=== PATIENT | female | born 1980 | race Caucasian/White ===

== ENCOUNTER 2023-11-18 13:34 | Outpatient (AMB) | payer OTHER, SELFPAY ==
--- NOTE | 2023-11-18 13:05 | MHC.OFFVIS ---
Vital Signs 11/18/23 13:36 Height 4 ft 10.5 in Weight 131 lb 2.801 oz BMI 26.9 BP 110/72 Blood Pressure Location Rt brachial Position Sitting Pulse 59 Pulse Source Pulse Oximeter Pulse Oximetry (%) 99 Oxygen Delivery Method Room Air Intake Visit Reasons: Shortness of breath Allergies No Known Allergies Allergy (Verified 11/18/23 13:38) HPI HPI Shortness of breath: Details: Ksenia is a pleasant 43 year old female, never smoker, with underlying GERD, anxiety and environmental allergies. She was referred by PCP for pulmonary evaluation. She reports dyspnea on exertion with associated chest tightness that started in July. Denies cough or wheezing. She does report symptoms are triggered by position (supine/prone), humidity and moderate exertion. She is quite active and notes when hiking no symptoms however with swimming breathing can become labored. She did note having fundoplication surgery 10+ years ago with resolution of symptoms, previously thought to have exercise induced asthma. She wonders if she may need revision or if symptoms are attributed to underlying pulmonary etiologies. She does note some degree of dysphagia. She was supposed to be sent for barium swallow test however did not have this performed. She reports family history of cardiac conditions, no pulmonary history. She also reports seasonal allergies, no recent allergy testing. She had a recent CXR which was reportedly unremarkable. She was evaluated by ENT with reported unremarkable evaluation. [facility] Social History (Updated 11/18/23 @ 13:39 by Shavonne Jesus [facility]) Patient Tobacco Use Status: Never used Tobacco Review of Systems Const Denies chills, Denies excessive sweating, Denies fever(s), Denies headache(s) and Denies night sweats Eyes Denies dry eyes, Denies irritation and Denies itchy eyes ENT Reports Normal hearing present, Denies headache(s), Denies nasal congestion, Denies nasal discharge and Denies sore throat Card Denies chest pain, Denies chest pain at rest, Denies chest pain with activity, Denies claudication, Denies leg edema, Denies orthopnea and Denies paroxysmal nocturnal dyspnea Resp Denies chest congestion, Denies cough, Denies excessive phlegm production, Denies pain on inspiration, Denies pain with cough and Denies stridor Musc Denies myalgias Neuro Reports Normal hearing present and Denies headache(s) Endo Denies excessive sweating Joe/Lymph Denies lymphadenopathy Aller/Immun Denies itchy eyes and Denies seasonal rhinorrhea Physical Exam Vital Signs: Last Vital Signs Pulse 59 11/18/23 13:36 BP 110/72 11/18/23 13:36 Pulse Ox 99 11/18/23 13:36 Oxygen Delivery Method Room Air 11/18/23 13:36 BMI result Body Mass Index 26.9 Const General: cooperative, healthy appearing, comfortable, no acute distress, well developed and alert Orientation/consciousness: patient oriented x3 Limitations: no limitations HEENT Head: Yes normal to inspection, Yes normocephalic and Yes atraumatic Ears: hearing grossly normal bilaterally and external ears normal Eyes General: appearance normal, both eyes and all related structures Eyelids: Yes eyelids normal Sclerae: sclerae normal EOM: EOMs intact bilaterally Neck Neck: Yes normal visual inspection and Yes no lymphadenopathy Lymphatic: no lymphadenopathy noted Chest Chest palpation & inspection: normal inspection of the chest Resp Effort & Inspection: normal respiratory effort, able to speak in complete sentences, no audible wheezes, no cough, no stridor, not tachypneic, no tripod positioning and no use of accessory muscles Auscultation: clear to auscultation bilaterally Cardio Jugular venous distension: no JVD Rate: regular rate Rhythm: regular rhythm Skin Other: warm, dry General skin exam: no rashes or lesions noted Neuro General: patient oriented x3 Cranial nerves: Yes Normal hearing present Cognition (Neuro): normal cognition Gait exam (Neuro): Normal gait present Extrem General: Yes normal to inspection, Yes capillary refill normal, Yes no clubbing, cyanosis or edema and Yes no pedal edema Psych Appearance: grossly normal and well kempt Speech and movement: Normal speech and movement present and Clear speech present Affect: normal affect Attitude: cooperative Thought process: Normal thought process present Thought content: Normal thought content present Insight: Good insight present (Psych) Judgement: Good judgement present (Psych) Assessment & Plan Assessment & Plan (1) Dyspnea on exertion: Code(s): R06.09 - Other forms of dyspnea Category: Medical (2) Dysphagia: Code(s): R13.10 - Dysphagia, unspecified Category: Medical (3) Environmental allergies: Code(s): Z91.09 - Other allergy status, other than to drugs and biological substances Category: Medical Plan Ksenia presents with dyspnea on exertion with unclear etiology, may have component of GI contribution. Will send for PFT and RAST to evaluate for underlying pulmonary etiology and possible allergic contribution. She is requesting this PFT order to be sent to [facility] and would prefer levalbuterol during test as she could not tolerate albuterol. Prior CXR reportedly unremarkable. All questions were answered and patient is in agreement of plan. Will follow up afer to review results or sooner if needed. Orders: Orders Resp Allergy Profile Region I 11/18/23 Z91.09 - Other allergy status, other than to drugs and biological substances Immunoglobulin E 11/18/23 Z91.09 - Other allergy status, other than to drugs and biological substances Complete Blood Count Auto Diff 11/18/23 Z91.09 - Other allergy status, other than to drugs and biological substances PFT pulmonary function test 11/18/23 R06.09 - Other forms of dyspnea Coding Level of Care Code New Pt Level 4 (02728) Diagnoses Dyspnea on exertion R06.09 Dysphagia R13.10 Environmental allergies Z91.09
[2023-11-18 13:36] VITALS: BP 110/72; PULSE 59; O2SAT 99; BMI 26.9
== END 2023-11-18 14:21 | disposition home or self-care (01) ==
PROVIDERS: PCP Internal Medicine; Referring Provider Internal Medicine; Visit Provider Nurse Practitioner Family
DX: R06.09 Other forms of dyspnea (principal); R13.10 Dysphagia, unspecified; Z91.09 Other allergy status, other than to drugs and biological substances
CPT/HCPCS: 99204

== ENCOUNTER → 2023-11-18 13:34 | Outpatient (BNVA) | payer OTHER, SELFPAY | PROVIDERS: PCP Internal Medicine; Referring Provider Internal Medicine; Visit Provider Nurse Practitioner Family ==

== ENCOUNTER 2024-11-04 14:08 | Outpatient (AMB) | payer OTHER, SELFPAY ==
--- NOTE | 2024-11-04 14:09 | MHC.PC.OV ---
Vital Signs 11/04/24 14:14 Height 4 ft 11.45 in Weight 128 lb BMI 25.5 BP 106/62 Blood Pressure Location Rt brachial Position Sitting Respiration 14 Pulse 60 Pulse Source Pulse Oximeter Temp 98.4 F Temp Source Temporal Artery Scan Pulse Oximetry (%) 99 Oxygen Delivery Method Room Air Intake Visit Reasons: Alan Mccann / Dr. Martinez Imaging Services Director Required: No Accompanied by: Self / Same As Patient Allergies No Known Allergies Allergy (Verified 11/04/24 14:22) Medication List - Last Reconciled 11/04/24 by Lidia Taveras PA-C fluticasone propionate 50 mcg/actuation (Flonase Allergy Relief) 2 sprays intranasal BID PRN loratadine (Claritin) 10 mg PO DAILY norethindrone-e.estradiol-iron 1 mg-20 mcg ()/75 mg (7) (03/09 (28)) 1 tab PO DAILY venlafaxine ER 75 mg PO DAILY Tobacco use date assessed: 11/04/24 Dental Screening Dental Screen Date: 11/04/24 Did you have a dental visit in the last 12 months?: Yes Did you have a dental problem in the last 6 months where you did not have access to dental care?: No Was dental information given to patient?: Patient has dentist HPI Alan Mccann / Dr. Martinez HPI Details The patient is a 44-year-old female presenting with a annual physical exam and to establish care. She has a history of anxiety and depression, for which she is currently taking venlafaxine. She also reports seasonal allergies managed with fluticasone nasal spray and Claritin D. The patient has a history of Gastroesophageal Reflux Disease (GERD) and underwent fundoplication in 1999. She reports occasional dysphagia with dry foods, which she attributes to GERD. She reports worsening rosacea, characterized by painful bumps and erythema, which has not improved with [id number] treatments. She has not seen a substation electrician supervisor due to difficulty in getting an appointment. The patient had a flu vaccine in 2017, after which she experienced symptoms suggestive of transverse myelitis. She has a letter from Dr. Martinez exempting her from future flu vaccinations due to these symptoms. Preventative care measures include a recent normal mammogram and plans for a colonoscopy at age 45, given no family history of colon cancer. 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 [facility] Medical History (Updated 11/04/24 @ 15:32 by Lidia Taveras PA-C) Anxiety and depression Transverse myelitis GERD (gastroesophageal reflux disease) Annual physical exam Acne rosacea History of mammogram (~03/06/24) Encounter for preventive care Family History Father No problems noted. Mother Heart problem Coronary artery disease Social History Housing: Condominium Alcohol intake: current Alcohol intake frequency: holidays/special occasions only Patient Tobacco Use Status: Never used Tobacco service: No Current occupational status: employed Cognitive needs: No Hearing needs: No Vision needs: No Questionnaire PHQ-9 Over the last 2 weeks, how often have you been bothered by any of the following problems? 1. Little interest or pleasure in doing things: not at all 2. Feeling down, depressed, or hopeless: not at all 3. Trouble falling or staying asleep, or sleeping too much: not at all 4. Feeling tired or having little energy: not at all 5. Poor appetite or overeating: not at all 6. Feeling bad about yourself - or that you are a failure or have let yourself or your family down: not at all 7. Trouble concentrating on things, such as reading the newspaper or watching television: not at all 8. Moving or speaking so slowly that other people could have noticed. Or the opposite - being so fidgety or restless that you have been moving around a lot more than usual: not at all 9. Thoughts that you would be better off or of hurting yourself in some way: not at all Total score: 0 Depression Screening Interpretation: Negative Depression Screening Done: Yes 30318 - PHQ-9 Billing: Yes Source: Developed by Drs. Cedric Quiroz, Debo Humphrey, Yossi Vail and colleagues, with an educational meena from [employer]. Thrive Questionnaire Date Thrive assessed: 11/04/24 I am a: Patient What is your living situation today?: I have a steady place to live Within the past 12 months, did the food you bought not last and you didn't have the money to get more?: Never true Within the past 12 months, did you worry whether your food would run out before you got money to buy more?: Never true Do you have trouble paying for medicines?: No Do you have trouble getting transportation to medical appointments?: No Do you have trouble paying your heating and electricity bill?: No Do you have trouble taking care of your child, family member or friend?: No Do you have trouble with day-to-day activities such as bathing, preparing meals, shopping, managing finances, etc.?: No Are you currently unemployed and looking for a job?: No Please select the resources that you would like help with: None THRIVE Score: 0 AUDIT C Alcohol Use Questionnaire (AUDIT-C) 1. How often do you have a drink containing alcohol?: Monthly or less 2. How many drinks containing alcohol do you have on a typical day when you are drinking?: 1 or 2 3. How often do you have six or more drinks on one occasion?: Never Total Score: 1 Score Reviewed/Action Taken: No SWEETIE-7 AMB Questionnaire SWEETIE-7 Date SWEETIE - 7 assessed: 11/04/24 Feeling nervous, anxious, or on edge: 0 = Not at all Not being able to stop or control worryin = Not at all Worrying too much about different things: 0 = Not at all Trouble relaxin = Not at all Being so restless that it is hard to sit still: 0 = Not at all Becoming easily annoyed or irritable: 0 = Not at all Feeling afraid as if something awful might happen: 0 = Not at all Total SWEETIE-7 score (0-4 normal; 5-9 mild; 10-14 moderate; 15-21 severe): 0 Source: Developed by Drs. Cedric Quiroz, Debo Humphrey, Yossi Vail and colleagues, with an educational meena from [employer]. SWEETIE-7 Assessment Billing SWEETIE-7 Assessment Tool: SWEETIE-7 Assessment 66420 Review of Systems Const Details: - Dermatological: Reports worsening rosacea with painful bumps. - Gastrointestinal: Reports occasional dysphagia with dry foods. - Neurological: Denies any current symptoms of transverse myelitis. All systems reviewed & are unremarkable except as noted in HPI and below Physical exam (Primary Care) Vital Signs: Last Vital Signs Temp 98.4 F 11/04/24 14:14 Pulse 60 11/04/24 14:14 Resp 14 11/04/24 14:14 BP 106/62 11/04/24 14:14 Pulse Ox 99 11/04/24 14:14 Oxygen Delivery Method Room Air 11/04/24 14:14 Care Plan Goal for BP management: <140/90 at Goal BMI result Body Mass Index 25.5 BMI Assessment/Plan discussion: High BMI High, discussed plan: lifestyle, weight reduction, dietary, physical activity, alcohol moderation and other Tobacco/Smoking Status: Tobacco use Status Tobacco use date assessed 11/04/24 11/04/24 14:19 Patient Tobacco Use Status Never used Tobacco 11/04/24 14:19 PHQ-9: PHQ-9 Score PHQ-9: Total score 0 11/04/24 14:23 Depression Screening Interpretation: Negative Thrive Assessment: Date of Thrive Assessment Date Thrive assessed 11/04/24 11/04/24 14:19 Const Other: Appearance: Alert. Oriented X3. No acute distress. Head: Normal external exam. Normocephalic. Atraumatic. Eyes: Pupils are equal, round, and reactive to light. Extraocular movements intact. Conjunctiva and sclera normal. Eyelids normal. Ears: External auditory canal normal. Tympanic membranes normal. Throat: Pharynx normal. Uvula midline. Moist mucous membranes. Neck: Normal inspection. Neck supple. Full range of motion. No adenopathy. Thyroid Normal. No meningeal signs. No neck mass noted. Cardiovascular: Normal heart rate and rhythm. Heart sound normal. No murmurs noted. Pulses normal throughout. Respiratory: No respiratory distress. Painless inspiration. Breath sounds normal. No wheezes/rales/rhonchi noted. Chest nontender. No accessory muscle usage noted or decreased air movement noted. Abdomen: Soft and nontender. Bowel sounds normal in all 4 quadrants. No distention noted. No organomegaly noted. No visible injury noted. Back: No costovertebral angle tenderness. Full range of motion noted. Skin: Skin warm and dry. Normal skin color. Normal skin turgor. No rashes/lesions/lacerations noted. Extremities: No lower extremity edema. Extremities exhibit normal range of motion. Extremities nontender. Neuro: Oriented X 3. No motor deficit. No sensory deficit. Reflexes normal. Results Reviewed Results Reviewed: - Labs: Total cholesterol over 200 mg/dL, HDL 120 mg/dL, fasting glucose under 110 mg/dL, all other labs normal. - Imaging: Normal mammogram this year. Coding Level of Care Code New Pt Level 4 (57541) New Pt Prev Care 40-64y(01014) Diagnoses Annual physical exam Z00.00 Environmental allergies Z91.09 GERD (gastroesophageal reflux disease) K21.9 Acne rosacea L71.9 Transverse myelitis G37.3 Encounter for preventive care Z00.00 Anxiety and depression F41.9; F32.A Additional Codes SWEETIE-7 Assessment Billing - SWEETIE-7 Assessment Tool: SWEETIE-7 Assessment 87303 ([id number]) PHQ-9 - 40047 - PHQ-9 Billing: Yes ([id number]) Time Spent (min) 50 Assessment & Plan Assessment & Plan (1) Annual physical exam: Code(s): Z00.00 - Encounter for general adult medical examination without abnormal findings Category: Medical (2) Environmental allergies: Code(s): Z91.09 - Other allergy status, other than to drugs and biological substances Category: Medical Plan: The patient will continue using fluticasone nasal spray and Claritin D for allergy management. (3) GERD (gastroesophageal reflux disease): Code(s): K21.9 - Gastro-esophageal reflux disease without esophagitis Category: Medical Plan: The patient is advised to monitor dietary triggers for GERD and manage dysphagia by avoiding dry foods. (4) Acne rosacea: Code(s): L71.9 - Rosacea, unspecified Category: Medical Plan: A prescription cream will be provided for rosacea, and a referral to a substation electrician supervisor has been made. (5) Transverse myelitis: Code(s): G37.3 - Acute transverse myelitis in demyelinating disease of central nervous system Category: Medical Plan: The patient has a letter exempting her from flu vaccinations due to suspected transverse myelitis post-vaccination. (6) Encounter for preventive care: Code(s): Z00.00 - Encounter for general adult medical examination without abnormal findings Category: Medical Plan: The patient will undergo routine blood work, including CBC, CMP, and other relevant tests. A colonoscopy is planned for age 45. (7) Anxiety and depression: Code(s): F41.9 - Anxiety disorder, unspecified; F32.A - Depression, unspecified Category: Medical Plan: The patient will continue venlafaxine for management of anxiety and depression. A 90-day supply has been prescribed. Plan Plan Patient was informed and verbally consented to the use of an ambient scribe for clinic note documentation during this visit. 1. Anxiety And Depression The patient will continue venlafaxine for management of anxiety and depression. A 90-day supply has been prescribed. 2. Seasonal Allergies The patient will continue using fluticasone nasal spray and Claritin D for allergy management. 3. Gastroesophageal Reflux Disease (Gerd) The patient is advised to monitor dietary triggers for GERD and manage dysphagia by avoiding dry foods. 4. Rosacea A prescription cream will be provided for rosacea, and a referral to a substation electrician supervisor has been made. 5. Transverse Myelitis (Suspected) The patient has a letter exempting her from flu vaccinations due to suspected transverse myelitis post-vaccination. 6. Preventative Care The patient will undergo routine blood work, including CBC, CMP, and other relevant tests. A colonoscopy is planned for age 45. I discussed with the patient the continuation of venlafaxine for anxiety and depression, and the use of fluticasone nasal spray and Claritin D for allergies. We reviewed dietary management for GERD and the plan to avoid dry foods to manage dysphagia. I recommended a prescription cream for rosacea and referred her to a substation electrician supervisor. We discussed the exemption from flu vaccinations due to suspected transverse myelitis and the need for a letter from Dr. Martinez. Preventative care measures were reviewed, including routine blood work and plans for a colonoscopy at age 45. Orders: Orders C Reactive Protein Today Z00.00 - Encounter for general adult medical examination without abnormal findings Complete Blood Count Auto Diff Today Z00.00 - Encounter for general adult medical examination without abnormal findings TSH reflex Free T4 Today Z00.00 - Encounter for general adult medical examination without abnormal findings Vitamin B12 and Folate Today Z00.00 - Encounter for general adult medical examination without abnormal findings Vitamin D 25-OH Total Today Z00.00 - Encounter for general adult medical examination without abnormal findings Lipid Panel Today Z00.00 - Encounter for general adult medical examination without abnormal findings UA CC w/rflx Micro + Cult Today Z00.00 - Encounter for general adult medical examination without abnormal findings Comprehensive [place]. Panel Fast Today Z00.00 - Encounter for general adult medical examination without abnormal findings Hemoglobin A1c Today Z00.00 - Encounter for general adult medical examination without abnormal findings Liver Panel Today Z00.00 - Encounter for general adult medical examination without abnormal findings Referrals Dermatology Referral L71.9 - Rosacea, unspecified Medications: New metronidazole 1% 1 appl topical DAILY 55 grams 6RF L71.9 - Rosacea, unspecified Refilled venlafaxine ER 75 mg PO DAILY 90 caps 3RF Patient Instructions: - Continue taking venlafaxine as prescribed for anxiety and depression. - Use fluticasone nasal spray and Claritin D for allergy management. - Avoid dry foods to manage GERD symptoms. - Apply the prescribed cream for rosacea and follow up with a substation electrician supervisor. - Ensure routine blood work is completed and results are faxed to the office. - Plan for a colonoscopy at age 45.
[2024-11-04 14:14] VITALS: BP 106/62; PULSE 60; RESP 14; TEMP 36.9; O2SAT 99; BMI 25.5
--- OUTSIDE RECORDS SUMMARY | 2024-11-04 17:53 | XMS_ITS | Clinical Summary ---
Author Organization [facility] Address [address] [place] [address] Care Team Providers Care Death Claim Examiner Name Role Phone Michelle Cedric Rodriguez Primary Care Provider Allergies No known active allergies Medications Medication Sig Dispensed Refills Start Date End Date Status venlafaxine (EFFEXOR-XR) 75 MG 24 hr capsule TAKE 1 CAPSULE BY MOUTH EVERY DAY TAKE WITH FOOD 3 08/18/2018 Active Magnesium 200 MG CHEW Chew 600 mg by mouth daily. 0 Active vitamin B-12 (CYANOCOBALAMIN) 500 MCG tablet Take 5,000 mcg by mouth every other day. 0 Active baclofen (LIORESAL) 10 MG tablet Take 1 tablet (10 mg total) by mouth 3 (three) times a day as needed. 90 tablet 5 10/14/2018 Active Additional Information Patient not taking.Reason: Other, Reported on 12/15/2019 diazePAM (VALIUM) 2 MG tablet Take one tablet 30 minutes prior to lumbar puncture. May repeat once if needed for anxiety. 2 tablet 0 12/09/2018 Active Additional Information Patient not taking.Reason: Other, Reported on 12/15/2019 Active Problems Problem Noted Date Diagnosed Date Transverse myelitis 12/03/2018 Neuropathy 12/03/2018 Anxiety and depression Family History Medical History Relation Name Comments Multiple sclerosis Maternal Grandmother Multiple sclerosis Other 1 great aunt Multiple sclerosis Other 2 2 sec.cousins. Relation Name Status Comments Brother Alive Father Maternal Grandmother Mother Alive Other 1 great aunt Other 2 2 sec.cousins. Alive Social History Tobacco Use Types Packs/Day Years Used Date Smoking Tobacco: Never Smokeless Tobacco: Never Alcohol Use Standard Drinks/Week Comments Yes 0 (1 standard drink = 0.6 oz pur e alcohol) rarely Sex and Gender Information Value Date Recorded Sex Assigned at Female 12/11/2018 10:05 AM EDT Gender Identity Not on file Sexual Orientation Not on file Last Filed Vital Signs Vital Sign Reading Time Taken Comments Blood Pressure 120/76 12/15/2019 1:34 PM EDT Pulse 85 12/15/2019 1:34 PM EDT Temperature 36.3 C (97.3 F) 12/15/2019 1:34 PM EDT Respiratory Rate 18 12/11/2018 12:15 PM EDT Oxygen Saturation 100% 12/11/2018 12:15 PM EDT Inhaled Oxygen Concentration - - Weight 61.7 kg (136 lb) 12/15/2019 1:34 PM EDT Height 149.9 cm (4' 11 ) 12/15/2019 1:34 PM EDT Body Mass Index 27.47 12/15/2019 1:34 PM EDT Plan of Treatment Health Maintenance Due Date Last Done Comments Hepatitis B Vaccines (1 of 3 - 3-dose series) 1980 Hepatitis C Screening 1980 COVID-19 Vaccine (#1) 04/29/1981 Depression Screening 1992 BMI Counseling 1998 Preventative Health Evaluation 1998 DTap / Tdap / Td (1 - Tdap) 10/31/1999 Cervical Cancer Screening (P ap Smear) 2001 Influenza Vaccine (#1) 2024 Pneumococcal Vaccine Aged Out No long er eligible based on patient's age to complete this topic RSV Ped < 20 months Aged Out No longe r eligible based on patient's age to complete this topic Care Teams Death Claim Examiner Relationship Specialty Start Date End Date Cedric Martinez DO [address] [place] [address] [place] [id number] PCP - General Internal Medicine 08/27/18
--- OUTSIDE RECORDS SUMMARY | 2024-11-04 17:53 | XMS_ITS | Encounter Summary ---
Author Organization [facility] Address [address] [place] [address] Phone Care Team Providers Care Shearing Machine Operator Name Role Phone Unknown, Unknown Primary Care Provider Cedric Roman DO Primary Care Provider Encounter Details Date Type Department Care Team (Latest Contact Info) Description 02/27/2017 Ancillary Orders Virtual Department [address] [place] [address] Ciaran Gates, DO [address] [place] [address] [email or web address] Lumbar [email or web address] Social History Tobacco Use Types Packs/Day Years Used Date Smoking Tobacco: Never Assessed Comments Unknown Sex and Gender Information Value Date Recorded Sex Assigned at Not on file Legal Sex Female 4:16 PM EST Gender Identity Not on file Sexual Orientation Not on file documented as of this encounter Plan of Treatment Not on file documented as of this encounter Results * MRI LUMBAR SPINE (NEURO) WITHOUT CONTRAST (03/07/2017 2:43 PM EST) Anatomical Region Laterality Modality L-spine Magnetic Resonan ce 03/07/2017 3:08 PM EST Impressions 03/07/2017 3:12 PM EST Very minimal degenerative bulge of the L4-5 and L5-S1 discs but otherwise essentially normal MRI lumbosacral spine. No focal disc protrusion, stenosis or other source of radicular pain. POS - [id number] Narrative 03/07/2017 3:12 PM EST TECHNIQUE: Exam performed on a 1.5 Qian high-field MRI scanner. Sagittal T1, T2 and STIR, axial T1 and T2 sequences were obtained. No comparison FINDINGS: The vertebral bodies are well-aligned. No marrow abnormalities to suggest bony trauma, tumor or infection. Normal conus position and appearance. Negligible broad bulge of the L4-5 and L5-S1 discs but normal disc heights at all levels. No desiccation nor focal disc protrusion at any level. Very minor facet arthropathy at L5-S1. No central or significant foraminal stenosis at any level. Paraspinous musculature is unremarkable. No masses or fluid collections. Procedure Note Shahram Kumari MD - 03/07/2017 TECHNIQUE: Exam performed on a 1.5 Qian high-field MRI scanner. SagittalT1, T2 and STIR, axial T1 and T2 sequences were obtained. No comparison FINDINGS: The vertebral bodies are well-aligned. No marrow abnormalities to suggestbony trauma, tumor or infection. Normal conus position and appearance. Negligible broad bulge of the L4-5 and L5-S1 discs but normal disc heightsat all levels. No desiccation nor focal disc protrusion at any level. Very minor facet arthropathy at L5-S1. No central or significant foraminalstenosis at any level. Paraspinous musculature is unremarkable. No masses or fluid collections. IMPRESSION: Very minimal degenerative bulge of the L4-5 and L5-S1 discs but otherwiseessentially normal MRI lumbosacral spine. No focal disc protrusion,stenosis or other source of radicular pain. POS - [id number] Ciaran Gates DO IMG MR XSPECIALTY Final Resu lt documented in this encounter Visit Diagnoses Diagnosis Lumbar radiculopathy Thoracic or lumbosacral neuritis or radiculitis, unspecified Lumbar radiculopathy Thoracic or lumbosacral neuritis or radiculitis, unspecified documented in this encounter Additional Health Concerns Infection Onset Date Last Indicated Resolved Time CoV-Presumed 01/08/2022 01/08/2022 01/29/2022 1:32 AM EST documented as of this encounter Care Teams Shearing Machine Operator Relationship Specialty Start Date End Date Unknown, Unknown, PCP - General 02/27/17 03/06/17 Cedric Martinez DO [address] [place] [address] PCP - General Internal Medicine 03/07/17 documented as of this encounter Additional Source Comments The information contained in this document represents components of the legal health record. It is not the complete legal health record.[facility]
--- OUTSIDE RECORDS SUMMARY | 2024-11-04 17:53 | XMS_ITS | Encounter Summary ---
Author Organization [facility] Address [address] [place] [address] Phone Care Team Providers Care Chemical Equipment Repairer Name Role Phone Cedric Martinez DO Primary Care Provider Encounter Details Date Type Department Care Team (Latest Contact Info) Description 02/26/2022 Transcribe Orders Virtual Department [address] [place] [address] Cedric Martinez DO [address] [place] [address] Breast screening (Primary Dx) Social History Tobacco Use Types Packs/Day Years Used Date Smoking Tobacco: Never Assessed Comments No Sex and Gender Information Value Date Recorded Sex Assigned at Not on file Legal Sex Female 4:16 PM EST Gender Identity Not on file Sexual Orientation Not on file documented as of this encounter Plan of Treatment Not on file documented as of this encounter Results * BI MAMMOGRAM SCREENING WITH TOMOSYNTHESIS WITH CAD (BILATERAL) (02/26/2022 11:11 AM EST) Anatomical Region Laterality Modality Breast Left, Breast Right, Breast Bilateral Bila teral Mammography 02/26/2022 11:2 3 AM EST Impressions 02/26/2022 1:12 PM EST No findings suspicious for malignancy. Bilateral screening mammography in 12 months recommended. BI-RADS CATEGORY: 2 - Benign finding. DENSITY: The breast tissue is extremely dense, which lowers the sensitivity of mammography. Narrative 02/26/2022 1:12 PM EST Bilateral mammography is performed in conjunction with computed aided detection. 3-D tomography along with 2-D C view imaging was also performed. Compared with outside screening mammogram 02/22/2021 and right diagnostic mammogram 02/23/2021. Outside right breast ultrasound from 02/23/2021 also reviewed. The previously described mass in the mid-posterior right breast in the inner right breast slightly below the nipple line on the MLO view correlating with cysts on ultrasound is smaller currently measuring 6 mm by 4 mm compared with 10 mm x 9 mm on 02/22/2021. Small asymmetry in the posterior right breast above the nipple line on the MLO view is consistent with superimposed fibroglandular tissue. No new suspicious masses, areas of architectural distortion or suspicious microcalcifications. Procedure Note Jose Curran MD - 02/26/2022 Bilateral mammography is performed in conjunction with computed aideddetection. 3-D tomography along with 2-D C view imaging was alsoperformed. Compared with outside screening mammogram 02/22/2021 and right diagnosticmammogram 02/23/2021. Outside right breast ultrasound from 02/23/2021 alsoreviewed. The previously described mass in the mid-posterior right breast in theinner right breast slightly below the nipple line on the MLO viewcorrelating with cysts on ultrasound is smaller currently measuring 6 mmby 4 mm compared with 10 mm x 9 mm on 02/22/2021. Small asymmetry in the posterior right breast above the nipple line on theMLO view is consistent with superimposed fibroglandular tissue. No new suspicious masses, areas of architectural distortion or suspiciousmicrocalcifications. IMPRESSION: No findings suspicious for malignancy. Bilateral screening mammography in12 months recommended. BI-RADS CATEGORY: 2 - Benign finding. DENSITY: The breast tissue is extremely dense, which lowers thesensitivity of mammography. Cedric Martinez DO IMG MG EXAMS Final Result documented in this encounter Visit Diagnoses Diagnosis Breast screening- Primary Breast screening, unspecified Breast screening Breast screening, unspecified documented in this encounter Care Teams Chemical Equipment Repairer Relationship Specialty Start Date End Date Cedric Martinez DO [address] [place] [address] PCP - General Internal Medicine 03/07/17 documented as of this encounter Additional Source Comments The information contained in this document represents components of the legal health record. It is not the complete legal health record.[facility]
--- OUTSIDE RECORDS SUMMARY | 2024-11-04 17:53 | XMS_ITS ---
Author Name [facility] Organization Unknown Care Team Organization Name Specialty Phone Email Start Date End Da te [facility] NULL Primary Care 12/26/2021 10/07/2023
--- OUTSIDE RECORDS SUMMARY | 2024-11-04 17:53 | XMS_ITS | Encounter Summary ---
Author Organization [facility] Address [address] [place] [address] [place] [address] Phone Care Team Providers Care Wood Box Maker Name Role Phone Cedric Martinez DO Primary Care Provider Encounter Details Date Type Department Care Team (Latest Contact Info) Description 12/21/2022 Transcribe Orders Virtual Department [address] [place] [address] Cedric Martinez, DO [address] [place] [address] Neuropathy (Primary Dx) Social History Tobacco Use Types Packs/Day Years Used Date Smoking Tobacco: Never Assessed Education Answer Date Recorded Are you interested in more education? Not on evans e 06/15/2022 Are you concerned about learning? Not on file 06/15/2022 No 06/15/2022 No 06/15/2022 Digital Access Answer Date Recorded No 07/16/2022 No 07/16/2022 Reliable internet access at home? Not on file 07/16/2022 Device with a working camera? Not on file Comments No Sex and Gender Information Value Date Recorded Sex Assigned at Not on file Legal Sex Female 4:16 PM EST Gender Identity Not on file Sexual Orientation Not on file documented as of this encounter Plan of Treatment Not on file documented as of this encounter Results * XR CERVICAL SPINE 4-5 VIEWS (12/21/2022 11:56 AM EDT) Anatomical Region Laterality Modality C-spine Computed Radiogr aphy 12/21/2022 2:52 PM EDT Impressions 12/21/2022 2:56 PM EDT Straightening of the cervical lordosis may be due to spasm. Mild degenerative changes. No other explanation for cervical pain. Narrative 12/21/2022 2:56 PM EDT XR CERVICAL SPINE 4-5 VIEWS HISTORY: Cervical pain with bilateral radicular symptoms. COMPARISON: None. FINDINGS: Straightening of the cervical lordosis. No evidence of fractures. No subluxations. Mild degenerative disc and endplate changes at C5-C6. Small posterior osteophytes at this level. Minimal degenerative disc and endplate changes at C4-C5. Other levels are well-maintained. Mild neuroforaminal narrowing at C3-C4 and C5-C6, more so on the right. No prominent facet arthropathy. Prevertebral soft tissues are normal. Procedure Note Jose Curran MD - 12/21/2022 XR CERVICAL SPINE 4-5 VIEWS HISTORY: Cervical pain with bilateral radicular symptoms. COMPARISON: None. FINDINGS: Straightening of the cervical lordosis. No evidence of fractures. No subluxations. Mild degenerative disc andendplate changes at C5-C6. Small posterior osteophytes at this level.Minimal degenerative disc and endplate changes at C4-C5. Other levels arewell-maintained. Mild neuroforaminal narrowing at C3-C4 and C5-C6, more soon the right. No prominent facet arthropathy. Prevertebral soft tissues are normal. IMPRESSION: Straightening of the cervical lordosis may be due to spasm. Milddegenerative changes. No other explanation for cervical pain. Cedric Martinez DO IMG XR SPINE Final Result documented in this encounter Visit Diagnoses Diagnosis Neuropathy- Primary Mononeuritis of unspecified site Neuropathy Mononeuritis of unspecified site documented in this encounter Care Teams Wood Box Maker Relationship Specialty Start Date End Date Cedric Martinez DO [address] [place] [address] PCP - General Internal Medicine 03/07/17 documented as of this encounter Additional Source Comments The information contained in this document represents components of the legal health record. It is not the complete legal health record.[facility]
--- OUTSIDE RECORDS SUMMARY | 2024-11-04 17:53 | XMS_ITS | Encounter Summary ---
Author Organization [facility] Address [address] [place] [address] [place] [address] Phone Care Team Providers Care Side Panel Padder Name Role Phone Cedric Martinez DO Primary Care Provider [phone] Encounter Details Date Type Department Care Team (Late st Contact Info) Description 2023 Ancillary Orders [facility], X-Ray - [address] [place] [address] Cedric Martinez, DO [address] [place] [address] Hot flashes (Primary Dx) Social History Tobacco Use Types [...] as of this encounter Results * XR CHEST PA AND LATERAL 2 VIEWS (2023 8:53 AM EDT) Anatomical Region Laterality Modality Chest Computed Radiogr aphy 2023 10:0 0 AM EDT Impressions 2023 10:02 AM EDT Normal chest. Narrative 2023 10:02 AM EDT XR CHEST PA AND LATERAL 2 VIEWS Referring clinician's provided indication for this examination in [facility]: Dyspnea (Shortness of Breath) COMPARISON: None. FINDINGS: Devices/Tubes/Lines: None. Lungs: The lungs are clear. No focal consolidation or pulmonary edema. Pleura: No pleural effusion or pneumothorax. Heart/Mediastinum: Normal heart and mediastinum. Bones/Soft Tissues: No significant skeletal abnormality. Procedure Note Quoc Marie MD - 2023 XR CHEST PA AND LATERAL 2 VIEWS Referring clinician's provided indication for this examination in Epic:Dyspnea (Shortness of Breath) COMPARISON: None. FINDINGS: Devices/Tubes/Lines: None. Lungs: The lungs are clear. No focal consolidation or pulmonary edema. Pleura: No pleural effusion or pneumothorax. Heart/Mediastinum: Normal heart and mediastinum. Bones/Soft Tissues: No significant skeletal abnormality. IMPRESSION: Normal chest. Cedric Martinez DO IMG XR CHEST Final Result documented in this encounter Visit Diagnoses Diagnosis Hot flashes- Primary Hot flashes documented in this encounter Care Teams Side Panel Padder Relationship Specialty Start Date End Date Cedric Martinez DO [address] [place] [address] PCP - General Internal Medicine 03/07/17 documented as of this encounter Additional Source Comments The information contained in this document represents components of the legal health record. It is not the complete legal health record.[facility]
--- OUTSIDE RECORDS SUMMARY | 2024-11-04 17:53 | XMS_ITS | Encounter Summary ---
Author Organization [facility] Address [address] [place] [address] Phone Care Team Providers Care Wood Milling Machine Hand Name Role Phone Unknown, Unknown Primary Care Provider Cedric Roman DO Primary Care Provider [phone] Encounter Details Date Type Department Care Team (Late st Contact Info) Description 02/27/2017 Procedure Pass [facility], [address] [place] [address] Social History Tobacco Use Types Packs/Day Years Used Date Smoking Tobacco: Never Assessed Comments Unknown Sex and Gender Information Value Date Recorded Sex Assigned at Not on file Legal Sex Female 4:16 PM EST Gender Identity Not on file Sexual Orientation Not on file documented as of this encounter Last Filed Vital Signs Vital Sign Reading Time Taken Comments Blood Pressure - - Pulse - - Temperature - - Respiratory Rate - - Oxygen Saturation - - Inhaled Oxygen Concentration - - Weight 56.7 kg (125 lb) 03/02/2017 10:33 AM EST Height 149.9 cm (4' 11 ) 03/02/2017 10:33 AM EST Body Mass Index 25.25 03/02/2017 10:33 AM EST documented in this encounter Plan of Treatment Not on file documented as of this encounter Visit Diagnoses Not on filedocumented in this encounter Additional Health Concerns Infection Onset Date Last Indicated Resolved Time CoV-Presumed 01/08/2022 01/08/2022 01/29/2022 1:32 AM EST documented as of this encounter Care Teams Wood Milling Machine Hand Relationship Specialty Start Date End Date Unknown, Unknown, PCP - General 02/27/17 03/06/17 Cedric Martinez DO [address] [place] [address] PCP - General Internal Medicine 03/07/17 documented as of this encounter Additional Source Comments The information contained in this document represents components of the legal health record. It is not the complete legal health record.[facility]
--- OUTSIDE RECORDS SUMMARY | 2024-11-04 17:53 | XMS_ITS | Encounter Summary ---
Author Organization [facility] Address [address] [facility] [address] [place] [address] Phone Care Team Providers Care Clinic Md Associate Name Role Phone Cedric Martinez DO Primary Care Provider Encounter Details Date Type Department Care Team (Late st Contact Info) Description 04/11/2022 Transcribe Orders [address] [place] [address] Cedric Martinez DO [address] [place] [address] Social History Tobacco Use Types Packs/Day Years [...] Diagnoses Not on filedocumented in this encounter Care Teams Clinic Md Associate Relationship Specialty Start Date End Date Cedric Martinez DO [address] [place] [address] PCP - General Internal Medicine 03/07/17 documented as of this encounter Additional Source Comments The information contained in this document represents components of the legal health record. It is not the complete legal health record.[facility]
--- OUTSIDE RECORDS SUMMARY | 2024-11-04 17:53 | XMS_ITS | Clinical Summary ---
Author Organization [facility] Address [address] [place] [address] Phone Care Team Providers Care Family Literacy Coordinator Name Role Phone Cedric Martinez DO Primary Care Provider Immunizations Immunization Administration Dates Next Due COVID-19 (Pre-12/10) Pfizer Vaccine, mRNA, PF 07/18/2021,10/09/2020,09/14/2020 Social History Tobacco Use Types Packs/Day Years [...] Mass Index 25.25 03/02/2017 10:33 AM EST Plan of Treatment Health Maintenance Due Date Last Done Comments Adult Td,Tdap Booster 1980 DEPRESSION SCREENING 1992 SMOKING Hx and SMOKELESS TOBACCO SCREENING 1993 HEPATITIS C SCREENING 1998 HIV ONE-TIME SCREENING (18-65 YEARS) 1998 PAP SMEAR 2001 INFLUENZA VACCINE (#1) 2024 COVID-19 VACCINE ( season) 2024 07/18/2021, 10/09/2020, 10/09/2020, Additional history exists MAMMOGRAM 03/06/2026 03/06/2024, 02/18, 02/26/2022, Additional history exists HEPATITIS A VACCINES Aged Out No long er eligible based on patient's age to complete this topic HIB VACCINES Aged Out No longer eligi ble based on patient's age to complete this topic MENINGOCOCCAL VACCINES (ACWY) Aged Out No longer eligible based on patient's age to complete this topic MENINGOCOCCAL VACCINES (B) Aged Out N o longer eligible based on patient's age to complete this topic PNEUMOCOCCAL VACCINES (0-49 years) Aged Out No longer eligible based on patient's age to complete this topic Medical Devices Not on file Procedures Procedure Name Priority Date/Time Associated Diagnosis Comments BI MAMMOGRAM SCREENING WITH TOMOSYNTHESIS WITH CAD (BILATERAL) Routine 03/06/2024 12:10 PM EST Encounter for screening mammogram for malignant neoplasm of breast from Last 3 Months or Most Recently Relevant to Health Maintenance Results * BI MAMMOGRAM SCREENING WITH TOMOSYNTHESIS WITH CAD (BILATERAL) (03/06/2024 12:10 PM EST) Anatomical Region Laterality Modality Breast Left, Breast Right, Breast Bilateral Bila teral Mammography 03/06/2024 12:3 8 PM EST Impressions 03/06/2024 12:47 PM EST No mammographic evidence of malignancy in either breast. Annual screening mammography is recommended. BI-RADS 1 NEGATIVE The patient will be notified of the results and recommendations. Narrative 03/06/2024 12:47 PM EST BI MAMMOGRAM SCREENING WITH TOMOSYNTHESIS WITH CAD (BILATERAL) Additional patient information: Screening. COMPARISON: Comparison is made with relevant prior imaging. Breast composition: The breast tissue is extremely dense which lowers the sensitivity of mammography. FINDINGS: No abnormal masses, suspicious calcifications, or other significant findings are identified mammographically in either breast. Procedure Note Jose Curran MD - 03/06/2024 BI MAMMOGRAM SCREENING WITH TOMOSYNTHESIS WITH CAD (BILATERAL) Additional patient information: Screening. COMPARISON: Comparison is made with relevant prior imaging. Breast composition: The breast tissue is extremely dense which lowers thesensitivity of mammography. FINDINGS: No abnormal masses, suspicious calcifications, or other significantfindings are identified mammographically in either breast. IMPRESSION: No mammographic evidence of malignancy in either breast. Annual screening mammography is recommended. BI-RADS 1 NEGATIVE The patient will be notified of the results and recommendations. Cedric Martinez DO IMG MG EXAMS Final Result from Last 3 Months or Most Recently Relevant to Health Maintenance Insurance [facility] [place] [id number] [facility] [employer] [facility] [employer] [facility] [facility] [employer] FAM[employer] [facility] [employer] [facility] [employer] FAMILY [employer] [facility] [employer] FAMILY Care Teams Family Literacy Coordinator Relationship Specialty Start Date End Date Cedric Martinez DO [address] [place] [address] PCP - General Internal Medicine 03/07/17 Additional Source Comments The information contained in this document represents components of the legal health record. It is not the complete legal health record.[facility]
--- OUTSIDE RECORDS SUMMARY | 2024-11-04 17:53 | XMS_ITS | Encounter Summary ---
Author Organization [facility] Address [address] [facility] [address] [place] [address] Phone Care Team Providers Care Tobacco Cutter Name Role Phone Cedric Martinez DO Primary Care Provider [phone] Encounter Details Date Type Department Care Team (Late st Contact Info) Description 02/26/2023 Procedure Pass [address] [place] [address] Social History Tobacco Use Types Packs/Day Years [...] on filedocumented in this encounter Care Teams Tobacco Cutter Relationship Specialty Start Date End Date Cedric Martinez DO [address] [place] [id number] PCP - General Internal Medicine 03/07/17 documented as of this encounter Additional Source Comments The information contained in this document represents components of the legal health record. It is not the complete legal health record.[facility]
--- OUTSIDE RECORDS SUMMARY | 2024-11-04 17:53 | XMS_ITS | Encounter Summary ---
Author Organization [facility] Address [address] [place] [address] Phone Care Team Providers Care Thrill Performer Name Role Phone Cedric Martinez DO Primary Care Provider [phone] Encounter Details Date Type Department Care Team (Latest Contact Info) Description 03/06/2024 Transcribe Orders Virtual Department [address] [place] [address] Cedric Martinez, [address] [place] [address] Encounter for screening mammogram for malignant neoplasm of breast (Primary Dx) Social History Tobacco Use Types [...] documented in this encounter Visit Diagnoses Diagnosis Encounter for screening mammogram for malignant neoplasm of breast- Primary Encounter for screening mammogram for malignant neoplasm of breast documented in this encounter Care Teams Thrill Performer Relationship Specialty Start Date End Date Cedric Martinez DO [address] [place] [address] PCP - General Internal Medicine 03/07/17 documented as of this encounter Additional Source Comments The information contained in this document represents components of the legal health record. It is not the complete legal health record.[facility]
--- OUTSIDE RECORDS SUMMARY | 2024-11-04 17:53 | XMS_ITS | Encounter Summary ---
Author Organization [facility] Address [address] [place] [id number] Phone Care Team Providers Care Classroom Instructor Name Role Phone Cedric Martinez DO Primary Care Provider [phone] Encounter Details Date Type Department Care Team (Late st Contact Info) Description 02/26/2022 Procedure Pass [address] [place] [address] Social History Tobacco Use Types Packs/Day Years [...] on filedocumented in this encounter Care Teams Classroom Instructor Relationship Specialty Start Date End Date Cedric Martinez DO [address] [place] [id number] PCP - General Internal Medicine 03/07/17 documented as of this encounter Additional Source Comments The information contained in this document represents components of the legal health record. It is not the complete legal health record.[facility]
--- OUTSIDE RECORDS SUMMARY | 2024-11-04 17:53 | XMS_ITS | Encounter Summary ---
Author Organization [facility] Address [address] [facility] [address] [place] [phone] Phone Care Team Providers Care Executive Asst Name Role Phone Cedric Martinez DO Primary Care Provider [phone] Encounter Details Date Type Department Care Team (Late st Contact Info) Description 03/06/2024 Procedure Pass [address] [place] [address] Social History Tobacco Use Types Packs/Day Years [...] on filedocumented in this encounter Care Teams Executive Asst Relationship Specialty Start Date End Date Cedric Martinez DO [address] [place] [phone] PCP - General Internal Medicine 03/07/17 documented as of this encounter Additional Source Comments The information contained in this document represents components of the legal health record. It is not the complete legal health record.[facility]
== END 2024-11-04 14:38 | disposition home or self-care (01) ==
PROVIDERS: PCP Internal Medicine; Visit Provider Physician Assistant Medical
DX: Z00.00 Encounter for general adult medical examination without abnormal findings (principal); G37.3 Acute transverse myelitis in demyelinating disease of central nervous system; Z91.09 Other allergy status, other than to drugs and biological substances; K21.9 Gastro-esophageal reflux disease without esophagitis; L71.9 Rosacea, unspecified; F41.9 Anxiety disorder, unspecified; F32.A Depression, unspecified

== ENCOUNTER → 2024-11-04 14:08 | Outpatient (BNVA) | payer OTHER, SELFPAY | PROVIDERS: PCP Internal Medicine; Visit Provider Physician Assistant Medical | DX: Z00.00 Encounter for general adult medical examination without abnormal findings (principal); K21.9 Gastro-esophageal reflux disease without esophagitis; L71.9 Rosacea, unspecified; G37.3 Acute transverse myelitis in demyelinating disease of central nervous system; F41.9 Anxiety disorder, unspecified; F32.A Depression, unspecified; Z91.09 Other allergy status, other than to drugs and biological substances | CPT/HCPCS: 96127 ==